=== PATIENT | male | born 1950 | race Caucasian/White ===

== ENCOUNTER 2017-12-11 10:23 | Emergency (ER) | payer MEDICARE ==
[2017-12-11 10:29] VITALS: BP 157/90
--- NOTE | 2017-12-11 11:14 | RADIOLOGY REPORT (SQ) ---
EXAM DESCRIPTION: CHEST 2 VIEWS COMPLETED DATE/TIME: 12/11/2017 11:07 am REASON FOR STUDY: COUGH X 2 WEEKS COMPARISON: None. EXAM PARAMETERS: NUMBER OF VIEWS: two views TECHNIQUE: Digital Frontal and Lateral radiographic views of the chest acquired. RADIATION DOSE: NA LIMITATIONS: none FINDINGS: LUNGS AND PLEURA: No opacities, masses or pneumothorax. No pleural effusion. MEDIASTINUM AND HILAR STRUCTURES: No masses or contour abnormalities. HEART AND VASCULAR STRUCTURES: Heart normal size. No evidence for failure. BONES: No acute findings. HARDWARE: None in the chest. OTHER: No other significant finding. IMPRESSION: NO ACUTE RADIOGRAPHIC FINDING IN THE CHEST. TECHNICAL DOCUMENTATION: JOB ID: [id number] [employer]- All Rights Reserved Reading location - IP/workstation name: [email or web address]
--- NOTE | 2017-12-11 12:00 | ER Document Report ---
ED ENT - General Chief Complaint: Ear Pain Stated Complaint: RIGHT EAR PAIN,SHOULDER/BACK PAIN Time Seen by Provider: 12/11/17 10:42 Mode of Arrival: Ambulatory Information source: Patient TRAVEL OUTSIDE OF THE [place] IN LAST 30 DAYS: No - HPI Patient complains to provider of: Ear problem, Other - COUGH, LEFT SHOULDER PAIN Notes: Patient is here with multiple complaints. Patient states that he has had a cough for approximately 2 weeks now. He denies any fever. He denies any difficulty breathing. He denies any chest pain. States that occasionally his ribs hurt when he coughs, but denies any pain currently. Patient also states that he has had right ear pain for the last several days days. No drainage. No fever. He also reports left shoulder pain for the last 3 weeks. He states that he was seen by his primary doctor 2 weeks ago and had an x-ray showing some calcifications. He continues to have this left shoulder pain. No recent falls or injuries. He denies any numbness, tingling, weakness. No abdominal pain. No nausea, vomiting, diarrhea. Patient states that he would like a prescription for Percocet for his shoulder and Hycodan for his cough. He has no other complaints at this time. - Related Data Allergies/Adverse Reactions: codeine Allergy (Verified 12/11/17 10:48) muscle relaxers Allergy (Uncoded 12/11/17 10:48) Past Medical History - Social History Smoking Status: Current Every Day Smoker Chew tobacco use (# tins/day): No Frequency of alcohol use: None Drug Abuse: None Family History: Reviewed & Not Pertinent Patient has suicidal ideation: No Patient has homicidal ideation: No - Past Medical History Cardiac Medical History: Reports: Hx Congestive Heart Failure, Hx Hypertension Endocrine Medical History: Reports: Hx Diabetes Mellitus Type 2 Renal/ Medical History: Denies: Hx Peritoneal Dialysis Past Surgical History: Reports: Hx Orthopedic Surgery - back Review of Systems - Review of Systems -: Yes All other systems reviewed and negative Physical Exam - Vital signs Vitals: Temp Pulse Resp BP Pulse Ox 97.8 F 100 19 157/90 H 95 12/11/17 10:26 12/11/17 10:26 12/11/17 10:26 12/11/17 10:12/11/17 10:26 - Notes Notes: GENERAL: alert, cooperative, nontoxic, no distress. HEAD: normocephalic, atraumatic EYES: conjunctiva pink without discharge, no external redness or swelling. EARS: no external swelling, no external redness. Left ear canal clear and TM normal. Right ear canal with significant swelling. No redness or drainage. Unable to visualize TM due to swelling. NOSE: atraumatic, no external swelling MOUTH/THROAT: mucous membranes moist and pink, posterior pharynx without erythema, swelling, exudate. No trismus or drooling. NECK: soft, supple, full range of motion, no meningismus. CHEST: no distress, lungs clear and equal throughout. No wheezing, rales, rhonchi. CARDIAC: regular rate and rhythm, no murmur, normal capillary refill, normal pulses. No peripheral edema noted. ABDOMEN: Soft, nontender. BACK: full range of motion, no CVA tenderness. EXTREMITIES: full range of motion of all extremities. No redness, no swelling. Tenderness to palpation of the left anterior shoulder. NEURO: alert and oriented x 3, no focal deficits, full range of motion of all extremities. PYSCH: appropriate mood, affect. Patient is cooperative. SKIN: pink, warm, dry, no rash. Course - Re-evaluation Re-evalutation: 12/11/17 12:00 Patient is nontoxic appearing with stable vitals. He is here with multiple complaints. He had a cough for 2 weeks, right ear pain for about a week and left shoulder pain for 3 weeks. He was seen by his primary care doctor and had x-ray of the left shoulder already was told he has some calcifications in the shoulder. Patient states that he is visiting here from [facility]. He states that he is here for a work project and should be going back home on Friday. He states that his family doctor had prescribed him some Percocet for his left shoulder pain but he states that this seems to make him rather nauseous so he did not bring it with him. He also is requesting a prescription for Hycodan to take for his cough. In reviewing his prescriptions from [place], patient was noted to have a 7 day supply of oxycodone prescribed on 11/20 A 21 day supply of oxycodone prescribed on 11/24 as well as a 12 day supply of HYCODAN prescribed on 12/04 and a 10 day supply of HYCODAN filled 2 days ago on 12/09. This is a fair amount of narcotic medications in the recent timeframe. Patient does seem to have some chronic pain problems as he has failed multiple narcotic prescriptions in [place] over the last several months. I explained to the patient that I am unable to prescribe him further narcotic medications because he has several active narcotic prescriptions from [place]. Patient became upset with me he could not understand why I would not prescribe him any further narcotic medications. I did offer to write him a prescription for a nonnarcotic medication such as meloxicam. He states that he will just take [id number] ibuprofen. Patient will be discharged home with a prescription for Ciprodex for his acute otitis externa. He will be given some Tessalon Perles that he can take as needed for his cough. He is instructed to follow-up in 2 days to have his ear wick removed, follow-up sooner for worsening pain, high fever, difficulty breathing or swallowing, or for any further concerns. The patient is noted to have elevated blood pressure during today's emergency department visit. The patient was informed of this finding. The patient was instructed that this may be related to pre-hypertension and requires further evaluation with a primary care provider. The patient has no hypertensive symptoms at this time. The patient's emergency department workup and current diagnosis were explained to the patient and or family. Follow-up instructions were provided. Medications if prescribed were discussed. Instructions for when to return to the emergency department including specific worrisome symptoms were discussed with the patient and/or family. - Vital Signs Vital signs: Temp Pulse Resp BP Pulse Ox 97.8 F 100 19 157/90 H 95 12/11/17 10:26 12/11/17 10:26 12/11/17 10:26 12/11/17 10:26 12/11/17 10:26 Procedures - Additional Procedures EAR WICK INSERTION Notes: 12/11/17 12:04 EAR WICK inserted into the right ear canal with forceps. Patient tolerated procedure well. No immediate consultations. Discharge - Discharge Clinical Impression: Cough Otitis externa Qualifiers: Otitis externa type: unspecified type Chronicity: acute Laterality: right Qualified Code(s): H60.501 - Unspecified acute noninfective otitis externa, right ear Left shoulder pain Qualifiers: Chronicity: chronic Qualified Code(s): M25.512 - Pain in left shoulder; G89.29 - Other chronic pain; G89.29 - Other chronic pain Condition: Stable Disposition: HOME, SELF-CARE Instructions: Use of Ear Drops ([facility]), Using Ear Drops with a Wick ([facility]), Otitis Externa ([facility]) Additional Instructions: Use your medication as prescribed. Need to have the ear wick removed in 2 days. He can follow-up back here for ear wick removal or at urgent care or your primary care doctor. May take 600 mg of ibuprofen as needed for pain. I will prescribe you a cough medication that you can try to help with your cough. Follow-up with your family doctor as scheduled next week, follow-up sooner for worsening pain, fever, difficulty breathing or swallowing, or for any further concerns. The patient is noted to have elevated blood pressure during today's emergency department visit. The patient was informed of this finding. The patient was instructed that this may be related to pre-hypertension and requires further evaluation with a primary care provider. The patient has no hypertensive symptoms at this time. The patient's emergency department workup and current diagnosis were explained to the patient and or family. Follow-up instructions were provided. Medications if prescribed were discussed. Instructions for when to return to the emergency department including specific worrisome symptoms were discussed with the patient and/or family. Prescriptions: Benzonatate [Tessalon Perle 100 mg Capsule] 100 mg PO Q8HP PRN #20 cap PRN Reason: Ciprofloxacin HCl/Dexameth [Ciprodex Otic Suspension 7.5 ml Bottle] 4 drop OT BID #1 bottle Forms: Elevated Blood Pressure Referrals: [facility] [Provider Group] - Follow up as needed
== END 2017-12-11 12:04 | disposition home or self-care (01) ==
LOC: ER 10:23
DX: H60.501 Unspecified acute noninfective otitis externa, right ear (principal); M25.512 Pain in left shoulder; G89.29 Other chronic pain; R05 Cough; H92.01 Otalgia, right ear; R07.81 Pleurodynia; Z79.899 Other long term (current) drug therapy; F17.200 Nicotine dependence, unspecified, uncomplicated; I10 Essential (primary) hypertension; E11.9 Type 2 diabetes mellitus without complications
CPT/HCPCS: 71046; 99283

== ENCOUNTER 2017-12-12 12:14 | Emergency (ER) | payer MEDICARE, MEDICAID ==
[2017-12-12 12:23] VITALS: BP 152/96
--- NOTE | 2017-12-12 12:50 | ER Document Report ---
HPI - HPI Pain Level: 5 Context: Patient is a 67-year-old who returns emergency department with a chief complaint today of right ear pain. Patient states that he was seen here yesterday and that the packing in his ear causing him pain. Otherwise he denies any fevers or chills. Patient also complaining of his chronic left shoulder pain requesting an x-ray at this time. Patient states that he has been taking Motrin and Tylenol for his discomfort. Denies any new trauma within the past 24 hours. Patient is from [place] and is visiting the area for work-related issues. Past Medical History - Social History Smoking Status: Smoker,Current Status Unk Family History: Reviewed & Not Pertinent - Past Medical History Cardiac Medical History: Reports: Hx Congestive Heart Failure, Hx Hypertension Endocrine Medical History: Reports: Hx Diabetes Mellitus Type 2 Renal/ Medical History: Denies: Hx Peritoneal Dialysis Past Surgical History: Reports: Hx Orthopedic Surgery - back Vertical Provider Document - CONSTITUTIONAL Agree With Documented VS: Yes Notes: PHYSICAL EXAM GENERAL: Alert, interacts well. HEAD: Normocephalic, atraumatic. HEENT: NCAT, pale conjunctiva, extraocular movements intact, pupils PERRL. external ear normal, there is evidence of external auditory canal tenderness with ear wick in place no blood/drainage, cerumen impaction, TM intact without evidence of effusion, bulging, injection, MMM, Uvula midline. Airway patent. No evidence of tonsillar enlargement, peritonsillar abscess, retropharyngeal abscess. NECK: Full range of motion. Supple. Trachea midline. LUNGS: Clear to auscultation bilaterally, no wheezes, rales, or rhonchi. No respiratory distress. HEART: Regular rate and rhythm. No murmurs, gallops, or rubs. EXTREMITIES: Moves all 4 extremities spontaneously. No edema, deformity, discomfort with PROM, radial pulses 2/4 bilaterally. No cyanosis. NEUROLOGICAL: Alert and oriented x4. Normal speech. PSYCH: Normal affect, normal mood. SKIN: Warm, dry, normal turgor. No rashes or lesions noted. - INFECTION CONTROL TRAVEL OUTSIDE OF THE [place] IN LAST 30 DAYS: No Course - Re-evaluation Re-evalutation: 12/12/17 13:35 Patient is a 67-year-old male who returns emergency department today complaining of right ear discomfort requesting the packing out as well as his chronic left shoulder pain. ear wick was removed. Patient again declining any additional prescriptions to help with his shoulder pain. X-ray shows evidence of chronic tendinitis with calcifications. Reviewed these results with him and stated that he could follow-up with an orthopedic in the area but that he would have better benefit following up with an orthopedist at home where he has insurance and a primary care doctor. Regarding his ear discussed with him to continue to utilize the drops as prescribed. Patient became very upset stating that we did nothing for him and left without discharge papers. - Vital Signs Vital signs: Temp Pulse Resp BP Pulse Ox 97.5 F 97 20 152/96 H 97 12/12/17 12:21 12/12/17 12:21 12/12/17 12:21 12/12/17 12:21 12/12/17 12:21 - Diagnostic Test Radiology reviewed: Image reviewed, Reports reviewed Discharge - Discharge Clinical Impression: Otitis externa Qualifiers: Otitis externa type: unspecified type Chronicity: acute Laterality: right Qualified Code(s): H60.501 - Unspecified acute noninfective otitis externa, right ear Left shoulder pain Qualifiers: Chronicity: chronic Qualified Code(s): M25.512 - Pain in left shoulder Hypertension Qualifiers: Hypertension type: unspecified Qualified Code(s): I10 - Essential (primary) hypertension Condition: Good Disposition: HOME, SELF-CARE Instructions: Use of Ear Drops ([facility]), Otitis Externa ([facility]) Additional Instructions: Please continue to utilize her eardrops as directed and follow-up with ear nose and throat as listed. Please take your blood pressure medication as directed. Please follow-up with orthopedics listed on your discharge paperwork. Prescriptions: Hydralazine HCl 5 mg PO DAILY #10 tablet Referrals: HUNTER HANSEN DO [ACTIVE STAFF] - Follow up as needed LUZMARIA CONDON DO [ASSOCIATE] - Follow up in 3-5 days
--- NOTE | 2017-12-12 13:16 | RADIOLOGY REPORT (SQ) ---
EXAM DESCRIPTION: SHOULDER LEFT 2 OR MORE VIEWS COMPLETED DATE/TIME: 12/12/2017 1:06 pm REASON FOR STUDY: pain x 1 mth COMPARISON: None. NUMBER OF VIEWS: Four views TECHNIQUE: Internal rotation, external rotation, and Y view images acquired of the left shoulder. LIMITATIONS: None. FINDINGS: MINERALIZATION: Normal. BONES: No acute fracture or dislocation. No worrisome bone lesions. JOINTS: No dislocation. VISUALIZED LUNGS AND RIBS: No pneumothorax. No rib fracture. SOFT TISSUES: Tendon calcification seen superior to the humeral head concerning for calcific tendinit is. OTHER: No other significant finding. IMPRESSION: No acute fracture or dislocation. Tendon calcification is seen superior to the humeral head concerning for calcific tendinitis. TECHNICAL DOCUMENTATION: JOB ID: [id number] [employer]- All Rights Reserved Reading location - IP/workstation name: [email or web address]
== END 2017-12-12 13:36 | disposition home or self-care (01) ==
LOC: ER 12:14
DX: H60.501 Unspecified acute noninfective otitis externa, right ear (principal); M25.512 Pain in left shoulder; I11.0 Hypertensive heart disease with heart failure; I50.9 Heart failure, unspecified; F17.200 Nicotine dependence, unspecified, uncomplicated
CPT/HCPCS: 99283